=== PATIENT | female | born 1990 | race Caucasian/White ===

== ENCOUNTER 2020-03-29 12:45 | Emergency (ER) | payer BC | END 2020-03-29 13:40 | disposition home or self-care (01) | LOC: NAV ERS 12:45 | DX: Z48.817 Encounter for surgical aftercare following surgery on the skin and subcutaneous tissue (principal); J45.909 Unspecified asthma, uncomplicated | CPT/HCPCS: 99282 ==

== ENCOUNTER 2020-10-14 16:39 | Emergency (ER) | payer OTHER | END 2020-10-14 17:39 | disposition home or self-care (01) | LOC: NAV ERS 16:39 | DX: S93.402A Sprain of unspecified ligament of left ankle, initial encounter (principal); J45.909 Unspecified asthma, uncomplicated; W17.2XXA Fall into hole, initial encounter ==